=== PATIENT | female | born 1955 | race Caucasian/White ===

== ENCOUNTER 2019-06-02 17:15 | Emergency (ER) | payer BC, OTHER ==
[2019-06-02] MEDS ORDERED: HYDROMORPHONE HCL INJ/PF 2 MG/ML AMPULE IV ONE ×3 (18:00→20:39)
[2019-06-02] MEDS ORDERED: NORMAL SALINE 1000 ML 1,000 ML IV ONE (18:00)
[2019-06-02] MEDS ORDERED: ONDANSETRON HCL INJ/PF 4 MG/2 ML SDV IV ONE ×2 (18:00→21:32)
--- NOTE | 2019-06-02 18:03 | ER Document Report ---
ED Medical Screen (RME) - General Chief Complaint: Hand Injury Stated Complaint: FALL/RIGHT WRIST PAIN, SWELLING Time Seen by Provider: 06/02/19 17:56 - HPI Notes: 06/02/19 18:01 Patient is a 63-year-old female with history of hypertension and anxiety who presents complaining of right wrist pain status post fall prior to arrival. Patient was on a trailer of an RV when she fell awkwardly landing on her buttock and her hand/wrist somewhat behind her. They have noticed swelling and possible deformity to the wrist since then. Patient states that she is ambulating without difficulty otherwise. She does have some soreness to her buttock. She did not hit her head or lose consciousness. No other concerns or complaints at this time. I have treated and performed a rapid initial assessment of this patient. A comprehensive ED assessment and evaluation of the patient, analysis of test results and completion of medical decision making process will be conducted by additional ED providers. PHYSICAL EXAMINATION: GENERAL: Well-appearing, well-nourished and in no acute distress. A&Ox4. Answers questions appropriately. Right wrist: + deformity. + tenderness. Pulse 2+. cap refill <3 sec. - Related Data Allergies/Adverse Reactions: Ukixhfd-Lqs-Goz Reductase Inhibitor Allergy (Verified 06/02/19 17:58) Past Medical History - Social History Frequency of alcohol use: None Drug Abuse: None Physical Exam - Vital signs Vitals: Temp Pulse Resp BP Pulse Ox 98.0 F 102 H 18 147/95 H 95 06/02/19 17:50 06/02/19 17:50 06/02/19 17:50 06/02/19 17:50 06/02/19 17:50 Course - Vital Signs Vital signs: Temp Pulse Resp BP Pulse Ox 98.0 F 102 H 18 147/95 H 95 06/02/19 17:50 06/02/19 17:50 06/02/19 17:50 06/02/19 17:50 06/02/19 17:50
--- NOTE | 2019-06-02 18:39 | RADIOLOGY REPORT (SQ) ---
EXAM DESCRIPTION: PELVIS AP COMPLETED DATE/TIME: 06/02/2019 6:24 pm REASON FOR STUDY: buttock pain s/p fall COMPARISON: None. NUMBER OF VIEWS: One view TECHNIQUE: AP Pelvis LIMITATIONS: None. FINDINGS: MINERALIZATION: Normal. HIPS: No acute fracture or dislocation. No worrisome bone lesions. PELVIS AND SACRUM: No acute fracture or dislocation. No worrisome bone lesions. PUBIS AND ISCHIUM: No acute fracture. LOWER LUMBAR SPINE: Lower lumbar degenerative changes. SOFT TISSUES: No findings. OTHER: No other significant finding. IMPRESSION: No pelvic fracture. No hip fracture. Lower lumbar degenerative changes. COMMENT: Pelvic fractures are often occult on plain radiographs. If strong clinical suspicion for f racture, recommend CT or MR. TECHNICAL DOCUMENTATION: JOB ID: [id number] 2010 [email or web address]- All Rights Reserved Reading location - IP/workstation name: [email or web address]
--- NOTE | 2019-06-02 18:40 | RADIOLOGY REPORT (SQ) ---
EXAM DESCRIPTION: WRIST RIGHT 3 VIEWS COMPLETED DATE/TIME: 06/02/2019 6:24 pm REASON FOR STUDY: + deformity s/p fall COMPARISON: None. NUMBER OF VIEWS: Three views. TECHNIQUE: AP, lateral, and oblique radiographic images acquired of the right wrist. LIMITATIONS: None. FINDINGS: MINERALIZATION: Normal. BONES: Transverse fracture of the distal radius with volar angulation and dorsal displacement of the distal fragment. SOFT TISSUES: No soft tissue swelling. No foreign body. OTHER: No other significant finding. IMPRESSION: Fracture of the distal radius. TECHNICAL DOCUMENTATION: JOB ID: [id number] 2010 [employer]- All Rights Reserved Reading location - IP/workstation name: [email or web address]
[2019-06-02 18:52] LABS: ABSOLUTE BASOPHILS # (AUTO) 0.1 10^3/uL (0.0-0.2); ABSOLUTE LYMPHOCYTES (AUTO) 2.7 10^3/uL (0.5-4.7); ABSOLUTE MONOCYTES (AUTO) 0.7 10^3/uL (0.1-1.4); ABSOLUTE NEUT (AUTO) 5.3 10^3/uL (1.7-8.2); BASOPHILS % (AUTO) 0.9 % (0-2); EOSINOPHILS % (AUTO) 10.2 % (0-6); HEMATOCRIT 38.8 % (36.0-47.0); HEMOGLOBIN 13.2 g/dL (12.0-15.5); LYMPHOCYTES % (AUTO) 27.8 % (13-45); MEAN CORPUSCULAR HEMOGLOBIN 29.3 pg (27.0-33.4); MEAN CORPUSCULAR VOLUME 86 fl (80-97); MONOCYTES % (AUTO) 7.5 % (3-13); PLATELET COUNT 354 10^3/uL (150-450); RED CELL DISTRIBUTION WIDTH 14.5 % (11.5-14.0); SEGMENTED NEUTROPHILS % (AUTO) 53.6 % (42-78); TOTAL CELLS COUNTED % (AUTO) 100 %; WHITE BLOOD COUNT 9.8 10^3/uL (4.0-10.5)
[2019-06-02 19:01] LABS: ALKALINE PHOSPHATASE 40 U/L (38-126); ANION GAP 9 (5-19); ASPARTATE AMINO TRANSFERASE 22 U/L (14-36); BILIRUBIN,TOTAL 0.3 mg/dL (0.2-1.3); BLOOD UREA NITROGEN 14 mg/dL (7-20); CALCIUM 7.6 mg/dL (8.4-10.2); CARBON DIOXIDE 20 mmol/L (22-30); CHLORIDE 109 mmol/L (98-107); GLUCOSE 84 mg/dL (75-110); TOTAL PROTEIN 5.4 g/dL (6.3-8.2)
[2019-06-02 19:04] LABS: INTERNATIONAL RATION (INR) 0.93; PARTIAL THROMBOPLASTIN TIME 27.3 SEC (23.5-35.8); PROTHROMBIN TIME 12.4 SEC (11.4-15.4)
[2019-06-02] MEDS ORDERED: PROPOFOL INJ 200 MG/20 ML VIAL IV ONE (19:05)
[2019-06-02 19:06] LABS: POTASSIUM 2.9 mmol/L (3.6-5.0)
--- NOTE | 2019-06-02 19:42 | ER Document Report ---
ED General - General Chief Complaint: Hand Injury Stated Complaint: FALL/RIGHT WRIST PAIN, SWELLING Time Seen by Provider: 06/02/19 17:56 Primary Care Provider: JULIAN GUERIN MD [ACTIVE PROVISIONAL STAFF] - Follow up in 3-5 days Notes: 63-year-old female presents emergency department off of hair falling off of a camper just prior to arrival. Patient states she fell off the camper from approximately 3 feet, landed on her outstretched right arm and her right buttock. States that her right buttock is sore but she has no difficulty walking and no increased pain with walking. States that her main pain is to her right hand and wrist. States that her fingers feel numb and tingly and have a burning pain that feels like her fingers are going to shoot off. Complains of extreme pain in her right wrist as well as a deformity. Last oral intake was around 2 or 3 PM when she had a small snack. Significant past medical history includes GERD with a history of Toña fundoplication x2. Does not take any blood thinners. TRAVEL OUTSIDE OF THE [place] IN LAST 30 DAYS: No - Related Data Allergies/Adverse Reactions: Ngqcsjp-Nrr-Uke Reductase Inhibitor Allergy (Verified 06/02/19 17:58) Past Medical History - General Information source: Patient, Relative - Social History Smoking Status: Never Smoker Frequency of alcohol use: None Drug Abuse: None Family History: Reviewed & Not Pertinent Patient has suicidal ideation: No Patient has homicidal ideation: No Review of Systems - Review of Systems Constitutional: No symptoms reported Musculoskeletal: See HPI Neurological/Psychological: See HPI -: Yes All other systems reviewed and negative Physical Exam - Vital signs Vitals: Temp Pulse Resp BP Pulse Ox 98.0 F 102 H 18 147/95 H 95 06/02/19 17:50 06/02/19 17:50 06/02/19 17:50 06/02/19 17:50 06/02/19 17:50 Interpretation: Hypertensive - Notes Notes: GENERAL: Alert, interacts well. Rocking back and forth in bed, clutching right arm, crying, appears uncomfortable. HEAD: Normocephalic, atraumatic EYES: Pupils equal, round and reactive to light, extraocular movements intact. ENT: Oral mucosa moist, tongue midline. NECK: Full range of motion, supple, trachea midline. LUNGS: Clear to auscultation bilaterally, no wheezes, rales or rhonchi, no respiratory distress. HEART: Regular rate and rhythm, no murmurs, gallops, rubs. ABDOMEN: Soft, nontender, nondistended, bowel sounds present in all 4 quadrants. EXTREMITIES: Able to wiggle his fingers on her right hand, unable to move her wrist, capillary refill is 2 seconds on the right hand, there is a obvious deformity to the distal radius of the right hand. Radial and ulnar pulses are 2+. NEUROLOGICAL: Alert and oriented x3, normal speech, able to feel me touching all the fingers on her right hand, complains of pain when I touch any of the finger s. PSYCH: Anxious. SKIN: Warm, Dry, normal turgor. Course - Re-evaluation Re-evalutation: 06/02/19 21:10 Patient had a distal radius fracture, risk and benefits of reduction and conscious sedation were discussed, patient and family members agreed to proceed with reduction under conscious sedation using propofol. Patient was reduced, repeat x-ray shows improved alignment that while not perfect is acceptable post reduction, patient was placed in a sugar tong splint. Will be asked to follow- up as an outpatient with orthopedic surgery of her choice, is referred to Dr. Guerin the surgeon on-call this evening. Patient does have a low potassium noted on her blood work. Patient is given potassium by mouth here and asked to follow-up with her primary care physician for repeat as an outpatient. Given the fact that she has no difficulty or pain with walking I have very low suspicion for pelvic fracture. Patient will not need a CT scan. Patient will be discharged to home in a sling and splint. - Vital Signs Vital signs: Temp Pulse Resp BP Pulse Ox 98.0 F 79 8 L 109/69 97 06/02/19 17:50 06/02/19 21:05 06/02/19 22:01 06/02/19 22:01 06/02/19 22:01 - Laboratory Result Diagrams: 06/02/19 18:30 06/02/19 18:30 Laboratory results interpreted by me: 06/02/19 06/02/19 18:30 18:30 RDW 14.5 H Eos % (Auto) 10.2 H Absolute Eos (auto) 1.0 H Potassium 2.9 L* Chloride 109 H Carbon Dioxide 20 L Calcium 7.6 L Total Protein 5.4 L Albumin 3.0 L Procedures - Conscious Sedation Conscious sedation Time started: 20:21 Time completed: 20:35 Consent obtained: Yes Indication: Displaced distal radius fracture Last meal: 06/02/2019 1400 Pt with a mild systemic disease.: P2. - ASA Classification. Airway Evaluation: Normal anatomy Mallampati Classification: Class 2 Used during procedure: Suction available, IV access obtained, Pulse ox on pt., telemetry monitor on pt. Medications administered: Diprivan Reversal agents: None I personally performed/intraservice time: Sedation, Procedure, 30 min or less Complications: No - Immobilization Right Wrist Pre-Proc Neuro Vasc Exam: Normal Immobilizer type: Sugar tong Performed by: Provider assisted, PCT Post-Proc Neuro Vasc Exam: Normal, Unchanged from pre-exam Alignment checked and good: Yes - Joint Reduction/Fracture Care Right Wrist Consent obtained: Yes Conscious sedation: Yes Pre-procedure NV exam: Yes Fracture: Closed - Small abrasion on the ulnar aspect of the wrist does not communicate with the fracture. Manipulation comment: Deformity was exaggerated and then taken back into position w/o difficulty Post-procedure NV exam: Yes Reduction attempts: 1 Complications: No Discharge - Discharge Clinical Impression: Distal radius fracture, right Qualifiers: Encounter type: initial encounter Fracture type: closed Fracture morphology: Collejamie' Qualified Code(s): S52.531A - Colles' fracture of right radius, initial encounter for closed fracture Condition: Stable Disposition: HOME, SELF-CARE Additional Instructions: Fractured Radius The bone called the radius is fractured. This type of fracture is typically caused by falling onto the outstretched hand. The fracture is not serious, however, and should heal well with adequate protection. Your physician's evaluation shows the bone is in good position to heal. A cast or splint is used to protect the fracture. For the first few days after the injury, the arm should be elevated and ice packed. Healing takes from three to eight weeks, depending on the age of the patient and the seriousness of the fracture. Your doctor has explained the treatment plan. It's important that you follow up as instructed to prevent complications. Call the doctor or return at once if severe pain or swelling occur, or if the hand becomes numb, swollen, or discolored. You may take ibuprofen 600 mg every 8 hours as needed for pain with food. You may also take the Percocet 1 tablet every 4 hours as needed for pain. If your pain is not controlled you may also take acetaminophen 650 mg (2 regular strength tablets) every 6 hours as needed for pain. You may use the Zofran every 4 hours for nausea. Prescriptions: Oxycodone HCl/Acetaminophen [Percocet 5-325 mg Tablet] 1 tab PO Q4HP PRN #14 tab PRN Reason: Ondansetron [Zofran Odt 4 mg Tablet] 1 - 2 tab PO Q4H PRN #15 tab.rapdis PRN Reason: For Nausea/Vomiting Referrals: JULIAN GUERIN MD [ACTIVE PROVISIONAL STAFF] - Follow up in 3-5 days
[2019-06-02] MEDS ORDERED: OXYCODONE-ACETAMINOPHEN 5-325 MG TABLET PO ONE (20:39)
[2019-06-02] MEDS ORDERED: ONDANSETRON 4 MG TAB.RAPDIS PO ONE (21:12)
[2019-06-02] MEDS ORDERED: POTASSIUM CHLORIDE 10 MEQ TABLET.ER PO ONE (21:12)
[2019-06-02] MEDS ORDERED: KETOROLAC TROMETHAMINE INJ/PF 30 MG/1 ML SDV IV ONE (21:30)
--- NOTE | 2019-06-02 21:31 | RADIOLOGY REPORT (SQ) ---
EXAM DESCRIPTION: XR WRIST 1-2 VIEWS COMPLETED DATE/TME: 06/02/2019 20:39 CLINICAL HISTORY: 63 years, Female, post-reduction 2108 hours COMPARISON: 1822 hours NUMBER OF VIEWS: 2 TECHNIQUE: LIMITATIONS: None. FINDINGS: Colles' fracture is again identified. Improved alignment post closed reduction. Disruption of the articular surface of the radius. Soft tissue swelling. Detail obscured by splint IMPRESSION: Improved alignment post closed reduction copyright 2011 [employer]- All Rights Reserved
[2019-06-02] MEDS ORDERED: PROMETHAZINE HCL 25 MG TABLET PO ONE (22:33)
[2019-06-02 23:18] VITALS: BP 101/67
== END 2019-06-02 23:34 | disposition home or self-care (01) ==
LOC: ER 17:15
DX: S52.531A Colles' fracture of right radius, initial encounter for closed fracture (principal); S60.811A Abrasion of right wrist, initial encounter; M79.641 Pain in right hand; M25.531 Pain in right wrist; R20.0 Anesthesia of skin; R20.2 Paresthesia of skin; W17.89XA Other fall from one level to another, initial encounter; I10 Essential (primary) hypertension; R79.89 Other specified abnormal findings of blood chemistry; Z88.8 Allergy status to other drugs, medicaments and biological substances
CPT/HCPCS: 96376; 99283; 96361; 99152; 96374; 96375; 36415; 85025; 85610; 85730; 80053; 72170; 73100; 73110; 25605; J1885; J1170; J2405; J7030; J2704